=== PATIENT | female | born 1975 | race Caucasian/White ===

== ENCOUNTER 2018-12-11 15:25 | Emergency (ER) | payer SELFPAY ==
[~2018-12-11] VITALS: Ht 172.7 cm; Wt 82.0 kg
[2018-12-11 15:43] VITALS: BP 136/94
== END 2018-12-11 22:10 | disposition left against medical advice (07) ==
LOC: ER 15:25
DX: R10.9 Unspecified abdominal pain (principal); Z53.21 Procedure and treatment not carried out due to patient leaving prior to being seen by health care provider